=== PATIENT | female | born 1985 | race Two or more races ===

== ENCOUNTER 2019-07-15 06:25 | Inpatient (IN) | payer MEDICAID ==
[~2019-07-15] VITALS: Ht 167.6 cm; Wt 78.9 kg
[2019-07-15] MEDS ORDERED: DEXT 5%/LR + PITOCIN 20UNITS/L 1,000 ML IV SCH ×2 (07:47→12:03)
[2019-07-15] MEDS ORDERED: CITRIC ACID/SODIUM CITRATE SOLN 30ML UDC PO NR (08:00)
[2019-07-15] MEDS ORDERED: NALOXONE HCL 0.4 MG/ML 1ML VIAL IM PRN (08:00)
[2019-07-15] MEDS ORDERED: CARBOPROST TROMETHAMINE 250 MCG/ML AMPUL IM PRN (08:00)
[2019-07-15] MEDS ORDERED: MISOPROSTOL 200MCG TABLET VG SCH (08:00)
[2019-07-15] MEDS: LACTATED RINGERS 1,000 ML IV SCH ×2 (08:15→09:17)
[2019-07-15 08:47] LABS: BASOPHILS % 0.1 % (0.0-2.0); EOSINOPHILS % 0.5 % (0.0-5.0); HEMATOCRIT. 39.4 % (36.0-48.0); HEMOGLOBIN. 13.2 g/dL (12.0-16.0); LYMPHOCYTES % 12.9 % (20.0-50.0); MEAN CORPUSCULAR HEMOGLOBIN 31.6 pg (28.0-32.0); MEAN CORPUSCULAR VOLUME 94.4 fL (81.0-99.0); MEAN PLATELET VOLUME 9.5 fl (7.4-10.4); MONOCYTES % 6.3 % (2.0-8.0); NEUTROPHILS % 80.2 % (40.0-76.0); PLATELET 199 x1000/uL (130-400); RED BLOOD CELL COUNT 4.18 mill/uL (4.2-5.4); RED CELL DISTRIBUTION WIDTH 13.3 % (11.6-14.6)
[2019-07-15 08:56] LABS: PARTIAL THROMBOPLASTIN TIME 26.6 sec (23.4-31.0)
[2019-07-15] MEDS ORDERED: FENTANYL CITRATE/PF 50MCG/ML 2ML VIAL ONE (09:13)
[2019-07-15] MEDS ORDERED: MORPHINE SULFATE/PF 1MG/ML 10ML AMP ONE (09:13)
[2019-07-15] MEDS ORDERED: OXYTOCIN 10 UNITS/ML 1ML ONE ×2 (09:14→11:12)
[2019-07-15] MEDS ORDERED: CEFAZOLIN SODIUM 1000MG/VIAL ONE (09:14)
[2019-07-15] MEDS ORDERED: EPHEDRINE SULFATE 50MG/ML VIAL ONE (09:14)
[2019-07-15] MEDS ORDERED: METOCLOPRAMIDE HCL 10MG/2ML VIAL ONE (09:16)
[2019-07-15] MEDS ORDERED: ONDANSETRON HCL 4MG/2ML INJ ONE (09:16)
[2019-07-15] MEDS ORDERED: KETOROLAC 60MG/2ML VIAL IM ONE (11:15)
[2019-07-15 11:43] LABS: HEPATITIS B SURFACE ANTIGEN NEGATIVE
[2019-07-15] MEDS ORDERED: IBUPROFEN 400MG TABLET PO PRN (12:15)
[2019-07-15] MEDS ORDERED: BISACODYL 10MG SUPP PR PRN (12:15)
[2019-07-15] MEDS ORDERED: HYDROMORPHONE HCL/PF 2MG/ML CPJ IM PRN (12:15)
[2019-07-15] MEDS ORDERED: RHO(D) IMMUNE GLOBULIN 300 MCG/SYR IM PRN (12:15)
[2019-07-15] MEDS ORDERED: DIPHENHYDRAMINE 50MG/ML VIAL IV PRN (14:30)
[2019-07-15] MEDS ORDERED: BUTORPHANOL TARTRATE 2 MG/ML VIAL IV PRN (14:30)
[2019-07-15] MEDS ORDERED: NALOXONE HCL 0.4 MG/ML 1ML VIAL IV PRN (14:30)
[2019-07-15] MEDS ORDERED: KETOROLAC 30MG/ML VIAL IV SCH (14:30)
[2019-07-15 15:00] VITALS: BP 108/70
[2019-07-15 20:00] VITALS: BP 98/52
[2019-07-15] MEDS ORDERED: LACTATED RINGERS 1,000 ML IV SCH (23:47)
[2019-07-16 00:30] VITALS: BP 94/55
[2019-07-16] MEDS ORDERED: DEXT 5%/LR + PITOCIN 20UNITS/L 1,000 ML IV SCH (02:15)
[2019-07-16 04:00] VITALS: BP 96/58
[2019-07-16 06:23] LABS: BASOPHILS % 0.2 % (0.0-2.0); EOSINOPHILS % 0.6 % (0.0-5.0); HEMOGLOBIN. 12.4 g/dL (12.0-16.0); LYMPHOCYTES % 9.6 % (20.0-50.0); MEAN PLATELET VOLUME 9.5 fl (7.4-10.4); MONOCYTES % 7.6 % (2.0-8.0); PLATELET 181 x1000/uL (130-400); RED BLOOD CELL COUNT 3.87 mill/uL (4.2-5.4); RED CELL DISTRIBUTION WIDTH 13.1 % (11.6-14.6)
[2019-07-16 09:00] VITALS: BP 113/68
[2019-07-16] MEDS: IBUPROFEN 800MG TABLET PO PRN ×2 (09:52→16:38)
[2019-07-16 16:41] VITALS: BP 103/53
[2019-07-16 17:40] LABS: CLARITY URINE CLEAR (CLEAR); COLOR URINE ORANGE (YELLOW); KETONES URINE NEGATIVE (NEGATIVE); LEUKOCYTE ESTERASE URINE TRACE (NEGATIVE); NITRITE URINE NEGATIVE (NEGATIVE); OCCULT BLOOD URINE 3+ (NEGATIVE); PH URINE 6.5 (4.5-8.0); PROTEIN URINE NEGATIVE (NEGATIVE); SPECIFIC GRAVITY URINE 1.005 (1.005-1.030)
[2019-07-16 18:11] LABS: *AMPHETAMINES SCREEN URINE NEGATIVE (NEGATIVE); *BARBITURATES SCREEN URINE NEGATIVE (NEGATIVE); *BENZODIAZEPINES SCREEN URINE NEGATIVE (NEGATIVE)
[2019-07-16 18:12] LABS: *COCAINE SCREEN URINE NEGATIVE (NEGATIVE); CANNABINOID URINE SCREEN NEGATIVE (NEGATIVE); METHADONE URINE SCREEN NEGATIVE (NEGATIVE); OPIATES URINE SCREEN NEGATIVE (NEGATIVE); PHENCYCLIDINE URINE SCREEN NEGATIVE (NEGATIVE)
[2019-07-16] MEDS ORDERED: TETANUS, DIPHTHERIA, PERTUSSIS VAC/PF 0.5ML (>7YR OLD) IM ONE (20:00)
[2019-07-16] MEDS ORDERED: INFLUENZA VIRUS VACCINE(AFLURIA) 0.5ML SYR IM ONE (20:00)
[2019-07-16 20:15] VITALS: BP 107/63
[2019-07-17 00:40] VITALS: BP 99/56
[2019-07-17 04:45] VITALS: BP 102/51
[2019-07-17] MEDS: IBUPROFEN 800MG TABLET PO PRN ×3 (05:10→15:43)
[2019-07-17 07:30] VITALS: BP 105/50
[2019-07-17 14:05] VITALS: BP 104/56
[2019-07-17 22:00] VITALS: BP 115/68
[2019-07-18] MEDS: IBUPROFEN 800MG TABLET PO PRN ×2 (01:58→07:58)
[2019-07-18] MEDS ORDERED: MULT1TAB67 MT (05:37)
[2019-07-18] MEDS ORDERED: IBUP-2030 MT (05:37)
[2019-07-18] MEDS ORDERED: FERR325T6 MT (05:37)
[2019-07-18 07:30] VITALS: BP 108/58
== END 2019-07-18 10:45 | disposition home or self-care (01) | DRG 540 ==
LOC: 8 EST LDRP 06:25 → 8 EST A/PP 07:13 → 8 EST LDRP 11:55 → 8EST 14:20
PROVIDERS: ADMIT Obstetrics & Gynecology; ATTEND Obstetrics & Gynecology
PROC: 10D00Z1 Extraction of Products of Conception, Low, Open Approach (ICD-10-PCS; principal; 2019-07-18)
DX: O34.219 Maternal care for unspecified type scar from previous cesarean delivery (principal); O99.324 Drug use complicating childbirth; Z37.0 Single live birth; F15.10 Other stimulant abuse, uncomplicated; F17.200 Nicotine dependence, unspecified, uncomplicated; Z3A.39 39 weeks gestation of pregnancy; O99.334 Smoking (tobacco) complicating childbirth; O32.8XX0 Maternal care for other malpresentation of fetus, not applicable or unspecified
CPT/HCPCS: 36415; 80305; 81003; 86592; 86703; 86762; 86850; 86900; 86920; 87340; 88307; 90686; 90715; J0690; J1885; J2274; J2405; J2590; J2765; J3010; J3490; J7120